=== PATIENT | female | born 1965 | race Caucasian/White ===

== ENCOUNTER 2016-08-05 20:26 | Inpatient (IN) | payer OTHER ==
--- NOTE | ~2016-08-05 | PA ---
Unit #: [id number] #: [id number] Patient: LUBA REYNA [id number] [facility] [address] [place] [address] [id number] MR#: [id number] NAME: LUBA REYNA [facility] Age: 51 Sex: F Admission Date: 08/05/2016 : 1965 Date of Assessment: 08/06/2016 Attending Physician: Oc Chappell M.D. Admitting Physician: Oc Chappell M.D. Primary Care Physician: Generic Doctor Not In System PSYCHIATRIC ASSESSMENT IDENTIFYING INFORMATION The patient is a 51-year-old , white female, admitted with increasing suicidal thinking. INFORMANT(S) Patient, reliability is fair. CHIEF COMPLAINT Depression and suicide. HISTORY OF PRESENT ILLNESS The patient is a 51-year-old white female, admitted after she had presented at this facility yesterday complaining of suicidal ideation. The patient reportedly took an overdose of Valium on 07/31/2016, and the patient was, again, reporting suicidal ideation yesterday. She was brought to this facility by her brother. Current stressors include, her mother's ill health. The mother is scheduled for aneurysm surgery in the next week. The patient also reports that she suffered a stroke four months ago and has been depressed since. The patient is followed on an outpatient basis by Dr. Velez, she reports a history of opioid addiction as has been prescribed Suboxone but has apparently not taken that medication in some time and it did not show up on her medication reconciliation list from her pharmacy. The patient continues to endorse positive suicidal ideation when seen today. Her chronic prescribed medications include, aspirin, gabapentin, pantoprazole, Lexapro, meloxicam, ondansetron, and phentermine. PAST PSYCHIATRIC HISTORY The patient is followed by Dr. Velez, she denies prior psychiatric hospitalization. She does report a history of suicide attempt approximately six days ago. PAST MEDICAL HISTORY Significant for history of the aforementioned stroke. The patient also suffers from gastroesophageal reflux disease, and chronic pain. MEDICATIONS 1. Aspirin 2. Gabapentin 3. Lexapro 4. Meloxicam 5. Zofran Unit #: [id number] #: [id number] Patient: LUBA REYNA 6. Phentermine ALLERGIES Penicillin. FAMILY HISTORY Noncontributory. 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 She reports a history of abuse of mostly pain opioids. MENTAL STATUS EXAM At this time reveals the patient to be a well-developed, well-nourished white female appearing her stated age. She is in no apparent physical distress at the time of the examination. She is awake, alert, and oriented in all spheres. Her mood is dysphoric. Her affect blunted. Speech is generally relevant and coherent. There are no gross deficits to memory or cognition noted. Intelligence is judged to be in the average range based on fund of knowledge. The patient is generally cooperative throughout the interview. She is currently endorsing positive suicidal ideation. she denies homicidal ideation. She denies any psychotic symptoms. Her judgment and insight appear to be reasonably intact. ASSETS Motivation for change. LIABILITIES Lack of resources. DIAGNOSTIC IMPRESSION Mcclave I: Major depressive disorder, recurrent, moderate. Opioid use disorder. Mcclave II: Mcclave III: History of cerebrovascular accident. History of gastroesophageal reflux disease. TREATMENT PLAN The patient remains hospitalized for safety and stabilization. She had apparently been prescribed diazepam by Dr. Velez but had recently overdosed on this medication. We will watch for any signs of benzodiazepine withdrawal and initiated a [facility] detox protocol. Additionally, we will watch for any signs of Suboxone withdrawal though the patient reports that she has not used the substance in about a month. I will add Abilify 2 mg daily to address the patient's depressive symptoms and will continue other previously prescribed medications. ESTIMATED LENGTH OF STAY [id number] days with follow up to take place through the auspices of Dr. Velez. Dictated by... Oc Chappell M.D. Unit #: [id number] #: [id number] Patient: LUBA REYNA MARILIA/natanael TD: 08/07/2016 05:04 JOB #: [id number] PSYCHIATRIC ASSESSMENT X Oc Chappell MD PSYCHIATRIC ASSESSMENT
--- NOTE | ~2016-08-05 | DS ---
Unit #: [id number] #: [id number] Patient: LUBA REYNA [id number] [facility] [address] [place] [address] [id number] MR#: [id number] NAME: LUBA REYNA ROOM: [facility] Age: 51 Sex: F Admission Date: 08/05/2016 : 1965 Discharge Date: 08/07/2016 Attending Physician: Oc Chappell M.D. Primary Care Physician: Generic Doctor Not In System DISCHARGE SUMMARY REASON FOR ADMISSION The patient is a 51-year-old white female, admitted to the [facility] unit with worsening depression. HOSPITAL COURSE The patient was admitted to the [facility] unit and continued on previously prescribed home medications including gabapentin, Protonix, Lexapro, and Zofran. Abilify 2 mg q.a.m. was added to augment the antidepressant effect of Lexapro. On 08/07/2016, the patient requested discharge from the hospital. She reported reduced suicidal ideation and was in agreement with the plan for followup through the auspices of [facility]. She cited a need to be with her mother who is scheduled for surgery the following day. FINAL DIAGNOSES Major depressive disorder, recurrent, moderate; sedative hypnotic use disorder. DISPOSITION ON DISCHARGE The patient is discharged on the following medications; aspirin 325 mg once daily for anticoagulation, Neurontin 300 mg b.i.d. for anxiety, Protonix 40 mg once daily for GERD, Lexapro 20 mg daily for depression, Mobic 15 mg once daily for arthritic pain, Zofran 4 mg b.i.d. p.r.n. nausea and vomiting, Abilify 2 mg q.a.m. for depression. DISCHARGE INSTRUCTIONS No dietary or physical restrictions were placed on the patient at the time of discharge. FOLLOWUP Followup will take place through the auspices of [facility]. PROGNOSIS The patient's prognosis is considered fair. Dictated by... Oc Chappell M.D. MARILIA/jay TD: 08/07/2016 22:22 Unit #: [id number] #: [id number] Patient: LUBA REYNA JOB #: [id number] DISCHARGE SUMMARY X Oc Chappell MD DISCHARGE SUMMARY
--- NOTE | ~2016-08-05 | HP ---
Unit #: [id number] #: [id number] Patient: LUBA REYNA [id number] [place] [address] [id number] MR#: [id number] NAME: LUBA REYNA ROOM: [facility] Age: 51 Sex: F Admission Date: 08/05/2016 : 1965 Attending Physician: Oc Chappell M.D. Admitting Physician: Oc Chappell M.D. Primary Care Physician: Generic Doctor Not In System HISTORY AND PHYSICAL HISTORY OF PRESENT ILLNESS The patient is a 51-year-old female admitted to on 08/05/2016 for suicidal ideation. PAST MEDICAL HISTORY 1. History of stroke about four months ago. 2. Sciatica. PAST SURGICAL HISTORY 1. Right shoulder. 2. . SOCIAL HISTORY The patient is unemployed. She denies tobacco use. She has a history of alcohol abuse. She uses pain pills occasionally. She is currently living with her boyfriend. FAMILY HISTORY Noncontributory. ALLERGIES Penicillin. CURRENT MEDICATIONS 1. Zofran. 2. Mobic. 3. Lexapro. 4. Pantoprazole. 5. Gabapentin. 6. Aspirin. 7. Phentermine. REVIEW OF SYSTEMS CONSTITUTIONAL: No fever or chills. HEENT: Denies any sore throat, ear pain or runny nose. CARDIOVASCULAR: Denies chest pain, irregular heart rhythm or palpitations. CHEST: Denies shortness of breath or cough. No hemoptysis. GASTROINTESTINAL: Denies nausea, vomiting, diarrhea or chronic constipation. ENDOCRINE: Denies history of increased thirst or urination. No recent significant weight loss or gain. GENITOURINARY: Denies dysuria, frequency, or hematuria. SKIN: Denies any rashes. HEMATOLOGIC: Denies history of increased bleeding or bruising. Unit #: [id number] #: [id number] Patient: LUBA REYNA MUSCULOSKELETAL: Denies any hot, swollen joints. No generalized muscle pain. NEUROLOGIC: Denies problems with vision or speech. No frequent, severe headaches. No numbness, tingling or weakness in any extremities. Denies loss of bladder or bowel control. PHYSICAL EXAMINATION GENERAL: The patient is awake, alert and oriented, in no acute distress. VITAL SIGNS: Temperature 98.3, heart rate 70, respiratory rate 16, blood pressure 101/61, height 5'1". WEIGHT: 158 pounds. SKIN: Warm and dry without rash or lesion. HEENT: Normocephalic. TMs not viewed. Oral and nasal passages clear. Conjunctivae clear. PERRLA. EOMs intact. NECK: Supple without lymphadenopathy or thyromegaly. HEART: Regular rate and rhythm without murmur. LUNGS: Clear. ABDOMEN: Soft, nontender. : Not done. EXTREMITIES: No evidence of cyanosis, clubbing or edema. Moves all without focal deficit. NEUROLOGICAL: Grossly within normal limits. Cranial Nerves: II: Visual vazquez are intact. III, IV AND : Extraocular movements are intact. Pupils are equal, round and reactive to light. V: Facial sensation is grossly normal. VII: Facial movements and expression are normal. VIII: Auditory acuity grossly intact. IX, X: Uvula is midline. Phonation is normal. XI: Patient shrugs shoulders and turns head normally. XII: Tongue protrudes in the midline. Sensory and Motor Function: Sensory and motor sensation is grossly normal. Motor: moves all extremities well. ASSESSMENT 1. Psychiatric admission. 2. History of stroke. 3. Sciatica. PLAN Psychiatric: Per psychiatrist. Medical: No contraindications to participating in facility activities. MEDICAL PROGNOSIS Good. MEDICAL CONDITION Stable. Dictated by... Holly Mariee TD: 08/07/2016 08:00 JOB #: [id number] Unit #: [id number] #: [id number] Patient: LUBA REYNA HISTORY AND PHYSICAL X PEÑA WILLARD APRN X HISTORY AND PHYSICAL
[2016-08-06 12:35] LABS: EOSINOPHIL# 0.3 X10e3 (0-0.7); EOSINOPHIL% 7.5 % (0.0-7.0); HEMATOCRIT 36.7 % (35.0-45.0); LYMPHOCYTE% 47.1 % (17.0-45.0); MEAN CELL VOLUME 86.6 FL (83-96); MEAN CORPUSCULAR HEMOGLOBIN 28.2 PG (28-34); MEAN CORPUSCULAR HGB CONC 32.6 g/dL (30-36); MEAN PLATELET VOLUME 8.6 FL (6.5-11.5); MONOCYTE# 0.4 X10e3 (0-1.0); MONOCYTE% 9.2 % (3.0-12.0); NEUTROPHIL# 1.5 X10e3 (1.5-7.1); NEUTROPHIL% 35.2 % (40-75); PLATELET COUNT 265 X10e3 (140-420); RED BLOOD COUNT 4.24 X10e (3.90-5.30); RED CELL DISTRIBUTION WIDTH 13.9 % (11.0-15.5); WHITE BLOOD COUNT 4.2 X10e3 (4.0-10.5)
[2016-08-06 12:40] LABS: DIFF IND NO
[2016-08-06 12:44] LABS: ALBUMIN SERUM 3.7 g/dL (3.5-5.0); ALKALINE PHOSPHATASE 75 U/L (32-92); ALT (SGPT) 19 U/L (10-40); AST (SGOT) 22 U/L (10-42); BILIRUBIN,TOTAL 0.7 mg/dL (0.2-2.0); BLOOD UREA NITROGEN 10 mg/dL (9-23); BUN/CREATININE RATIO 14.28; CALCIUM SERUM 9.2 mg/dL (8.4-10.2); CARBON DIOXIDE 29 mmol/L (22-31); CHLORIDE 108 mmol/L (100-111); CREATININE SERUM 0.7 mg/dL (0.6-1.4); GLOM FILT RATE Estimated ABOVE60 mL/min (>60); GLUCOSE FASTING 95 mg/dL (70-110); POTASSIUM 3.6 mmol/L (3.5-5.1); PROTEIN TOTAL SERUM 6.3 g/dL (6.0-8.3); SODIUM 139 mmol/L (135-145)
[2016-08-06 12:56] LABS: THYROID STIMULATING HORMONE 0.89 uIU/ml (0.34-5.60)
[2016-08-06 13:03] LABS: FREE THYROXIN (T4) 0.86 ng/dL (0.58-1.64)
[2016-08-07 12:39] LABS: URINE APPEARANCE CLEAR; URINE BILIRUBIN NEG (NEG); URINE BLOOD NEG (NEG); URINE COLOR YELLOW; URINE GLUCOSE NEG (NEG); URINE KETONE NEG (NEG); URINE LEUKOCYTE ESTERASE 1+ (NEG); URINE NITRATE NEG (NEG); URINE PH 5.5 (5-8); URINE PROTEIN NEG (NEG); URINE SPECIFIC GRAVITY 1.008 (1.003-1.035); URINE UROBILINOGEN 0.2 MG/DL (NEG)
[2016-08-07 12:48] LABS: URINE BACTERIA AUWI 1+ (NEGATIVE); URINE SQUAMOUS EPITHELIAL CELL OCC /[HPF]
[2016-08-07 13:07] LABS: U HYALINE CASTS AUWI 0-2 /[LPF]; URINE CRYSTALS CALCIUM OXALATE /[HPF]
[2016-08-07 13:27] LABS: AMPHETAMINE NEG (NEG); BARBITURATES NEG (NEG); BENZODIAZEPINES POS (NEG); COCAINE NEG (NEG); MARIJUANA NEG (NEG); OPIATES NEG (NEG); TRICYCLIC ANTIDEPRESSANTS NEG (NEG); U METHADONE NEG (NEG)
== END 2016-08-07 16:12 | disposition home or self-care (01) | DRG 885 ==
LOC: P1E 20:26
PROVIDERS: Specialist
DX: F33.1 Major depressive disorder, recurrent, moderate (principal); R45.851 Suicidal ideations; Z86.73 Personal history of transient ischemic attack (TIA), and cerebral infarction without residual deficits; K21.9 Gastro-esophageal reflux disease without esophagitis; Z56.0 Unemployment, unspecified; Z88.0 Allergy status to penicillin; Z79.82 Long term (current) use of aspirin; M54.30 Sciatica, unspecified side; F13.10 Sedative, hypnotic or anxiolytic abuse, uncomplicated; F11.10 Opioid abuse, uncomplicated
CPT/HCPCS: 80053; 80307; 81003; 84439; 84443; 85025